=== PATIENT | female | born 1990 | race Caucasian/White ===

== ENCOUNTER 2023-09-09 20:25 | Emergency (ER) | payer MEDICAID, SELFPAY ==
[2023-09-09 20:30] VITALS: BP 121/88; PULSE 62; RESP 18; TEMP 36.6; O2SAT 96
--- NOTE | 2023-09-09 20:34 | ED.GENADULT ---
HPI - General Adult General Chief complaint: Dental/Oral/Mouth Injury/Pain Stated complaint: Lower R tooth broken-severe pain Time Seen by Provider: 09/09/23 20:33 History of Present Illness HPI narrative: R Lower tooth broke a while ago and now it hurts super bad. states has dental anxiety , states will call in the AM to get appt. 2000 tylenol 33-year-old woman presenting to the emergency department with complaint of tooth pain. In this tooth apparently broke off sometime back. And has flared periodically with pain. Much worse now over the last 36 hours. [id number] treatments just are not able to cut it. Not specifically sensitive to cold or hot or touch; just with persistent pain. She is embarrassed about the state of her teeth. Has had extreme dental anxiety such that taking her own kids to the dentist results in her in cold sweats trying to get out other soon as possible. Has not noticed any swelling or drainage. No new trauma. No fever. Related Data Home Medications Medication Instructions Recorded Confirmed No Known Home Medications 09/09/23 09/09/23 Allergies Allergy/AdvReac Type Severity Reaction Status Date / Time No Known Drug Allergies Allergy Verified 09/09/23 20:31 Review of Systems Status of ROS: Reports: 6 or more systems reviewed and unremarkable except as noted in History and below PFSH PFS Social History Smoking Status: Never smoker Do you use any of these nicotine containing products: None How often do you have a drink containing alcohol: never AUDIT-C Alcohol total score: 0 Non-prescribed substance use: denies use Exam Narrative: Exam Narrative: Pleasant. Near tears. Anxious. Skin is warm and dry. Neck without lymphadenopathy. I do not appreciate external swelling of the jaw. Oropharyngeal exam does show some dental decay. The tooth in question Number 27 or 28 is broken off at the base. Pulp is exposed. Nerve might be visible here too. I do not see swelling in the area. Tender to palpation. Const: Vital Signs, click to edit/add: Vital Signs - 24 hr 09/09/23 20:30 Temperature 97.9 F Pulse Rate [Pulse Oximeter] 62 Respiratory Rate 18 Blood Pressure [Ri ght Upper Arm] 121/88 Pulse Oximetry 96 Oxygen Delivery Me thod Room Air Documenting provider has reviewed patient's vital signs: yes Course Vital Signs Vital signs: Initial Vital Signs Temperature 97.9 F 09/09/23 20:30 Temperature Source Temporal Artery Scan 09/09/23 20:30 Pulse Rate 62 09/09/23 20:30 Respiratory Rate 18 09/09/23 20:30 Blood Pressure 121/88 09/09/23 20:30 Blood Pressure Mean 99 09/09/23 20:30 Blood Pressure Position Sitting 09/09/23 20:30 Pulse Oximetry 96 09/09/23 20:30 Oxygen Delivery Method Room Air 09/09/23 20:30 Vital Signs Temperature 97.9 F 09/09/23 20:30 Pulse Rate 62 09/09/23 20:30 Respiratory Rate 18 09/09/23 20:30 Blood Pressure 121/88 09/09/23 20:30 Pulse Oximetry 96 09/09/23 20:30 Oxygen Delivery Method Room Air 09/09/23 20:30 Temperature 98.2 F 09/09/23 22:21 Pulse Rate 70 09/09/23 22:21 Respiratory Rate 18 09/09/23 22:21 Blood Pressure 118/78 09/09/23 22:21 Pulse Oximetry 96 09/09/23 22:20 Oxygen Delivery Method Room Air 09/09/23 22:20 Medical Decision Making MDM Narrative Medical decision making narrative: I suspect this is intermittent pain not unexpected from exposure here. Not necessarily related to infection. Did offer treatment for pain which she readily accepted. This would be in the form of a dental block. Returned with bupivacaine. This was placed in a posterior mental block initially. Did result in some diminishment of pain but still present. Subsequently returned to place more bupivacaine in a buccal block. This also helped further but pain not completely resolved. She does seem more relaxed and more comfortable. Intends to have follow-up soon as possible. Given further information for dental clinics. See patient discharge plan Discharge Plan Discharge Clinical Impression: Dental caries, Erosion of teeth, pulp, Toothache Patient Disposition: Home, Self-Care Condition: Improved Additional Instructions: Stay hydrated. It consider painting the exposed tooth with a sealant like DenTek or might place same brand putty. This can help with some of the sensitivity. A temporizing treatment until you can get to a dentist. See handout for dental clinic options. Schedule as soon as possible. Can take up to 800 mg of ibuprofen or up to 1000 mg of acetaminophen per dose. These can be combined. Keep in mind that each tablet of [place] contains 325 mg of acetaminophen. Alternative to the ibuprofen might be up to 500 mg of naproxen 2 times daily. Naproxen can be combined with acetaminophen or [place] but not with ibuprofen in same time dosing. [place] and penicillin from [facility]. Prescriptions: No Action No Known Home Medications Follow Up/Referrals: Anjelica Subramanian MD [Primary Care Provider] - Stand Alone Forms: [employer] Info Instructions
[2023-09-09] MEDS: BUPIVACAINE 0.25% 30 ML 10 ML INJECTION (20:49)
[2023-09-09 22:20] VITALS: BP 118/78; PULSE 70; RESP 18; TEMP 36.8; O2SAT 96
[2023-09-09 22:21] VITALS: BP 118/78; PULSE 70; RESP 18; TEMP 36.8
== END 2023-09-09 22:21 | disposition home or self-care (01) ==
PROVIDERS: Emergency Provider Family Medicine; PCP Family Medicine
DX: K02.9 Dental caries, unspecified (principal)
CPT/HCPCS: 99283; 99284; J0665